=== PATIENT | female | born 1975 | race Caucasian/White ===

== ENCOUNTER 2019-08-20 11:14 | Inpatient (IN) | payer BC, SELFPAY ==
[2019-08-20] VITALS (7 sets, daily range): BP systolic 96–138; BP diastolic 49–83; PULSE 76–103; RESP 16–18; TEMP 36.2–37.4; O2SAT 94–99; BMI 34.2; BMI 34.3; BMI 35.2
[2019-08-20 12:23] LABS: Absolute Lymphocyte Count 1.57 X10^3/uL (0.83-4.51); Absolute Neutrophil Count 12.6 X10^3/uL (2.0-7.7); Basophil# 0.03 X10^3/uL; Basophil% 0.2 % (0-1); Eosinophil# 0.06 X10^3/uL; Eosinophils% 0.4 % (0-5); Hematocrit 42.5 % (37-47); Hemoglobin 14.6 g/dL (12.0-15.0); Lymphocyte # 1.57 X10^3/ul (4.0); Lymphocyte % 10.3 % (19-41); Mean Corp Hgb Conc 34.4 g/dL (32-36); Mean Corpuscular Hgb 29.9 pg (27.0-32.0); Mean Corpuscular Volume 87.1 fL (81-99); Mean Platelet Vol. 9.5 fl (6.2-12.0); Monocyte# 0.88 X10^3/uL; Monocyte% 5.8 % (0-10); NRBC Flagged by Analyzer 0 % (0-5); Neutrophil # 12.57 X10^3/uL (2.7-7.7); Neutrophil % 82.8 % (47-70); Platelet Count 325 K/mm3 (150-450); RBC Distribution Width CV 12.4 % (11.6-14.6); Red Blood Count 4.88 M/mm3 (4.2-5.4); White Blood Count 15.2 K/mm3 (4.4-11.0)
[2019-08-20 12:31] LABS: Internal QC Validated? YES +Cl - CLEAR BKGD; Pregnancy, Serum, hCG Quali. NEGATIVE Negative
[2019-08-20 12:38] LABS: AST(SGOT) 5 U/L (15-37); Alanine Aminotransfer ALT/SGPT 15 U/L (13-56); Albumin, Serum 3.4 g/dL (3.2-5.0); Alkaline Phosphatase 79 U/L (45-117); Anion Gap 6 (5-15); BUN 9 mg/dL (7-18); BUN/Creat Ratio 13.7 RATIO (10-20); Bilirubin, Direct 0.23 mg/dL (0.00-0.30); Calcium,Total 8.8 mg/dL (8.5-10.1); Chloride 103 mmol/L (98-107); Creatinine, Serum 0.66 mg/dL (0.55-1.02); EST Glomerular Filtration Rate 104 mL/min (>60); Est Glom Filt Rate - Afr Amer 126 mL/min (>60); Estimated Creatinine Clearance 105.78 ml/min; Globulin 3.8 g/dL (2.2-4.2); Glucose 94 mg/dL (74-106); Lipase 140 U/L (73-393); Protein, Total 7.2 g/dL (6.4-8.2); Sodium Level 137 mmol/L (136-145)
--- NOTE | 2019-08-20 13:22 | CT_ITS ---
STUDY: CT ABDOMEN AND PELVIS WITH CONTRAST REASON FOR EXAM: Female, 44 years old. 2 week history of left lower quadrant pain and diarrhea. Elevated white cell count. RADIATION DOSAGE (If Supplied By Facility): CTDIvol = ( 16.57 ) mGy, DLP = ( 1226.87 ) mGycm TECHNIQUE: Transaxial images were obtained from the dome of the diaphragm to the symphysis pubis without oral contrast. IV Isovue 370 100mL was administered. Sagittal and coronal images were reconstructed. Individualized dose optimization techniques were used for this CT. COMPARISON: Comparison is made with prior examination dated November 11, 2015. FINDINGS: The visualized lung bases are unremarkable. The visualized portions of the heart are within normal limits. Normal liver. Normal gallbladder and extrahepatic biliary system. Normal spleen. Normal pancreas. Normal bilateral adrenal glands. Normal right kidney. Normal left kidney. Normal visualized stomach. Normal small intestine. There is diverticulosis, with thickening of the colon wall, and pericolonic inflammation changes consistent with acute diverticulitis. Increased markings are seen in the surrounding peritoneal fat. The appendix is visualized and appears normal. There is scattered atherosclerotic calcification of the abdominal aorta, without a demonstrated aneurysm. Normal inferior vena cava. Normal retroperitoneum. Normal urinary bladder. Follicles are seen in both ovaries. Normal abdominal wall. Normal osseous structures. CT/Abdomen/Pelvis W IV Cont ONLY IMPRESSION: Findings in keeping with noncomplicated sigmoid diverticulitis. Electronically Signed: Tank Bowman, at 14:39 EDT , Service support ,
--- NOTE | 2019-08-20 13:23 | ED.DCSUM_ITS ---
History of Present Illness Chief Complaint: Abd Pain Informant: Patient, Family - Abdominal Pain/Flank Pain Onset: Days - 3-4 Context: Gradual Onset Timing: Continuous Quality: Aching Location: LLQ Current Severity: Severe Maximum Severity: Severe Worsened by: Car ride Relieved by: Nothing - Nausea/Vomiting/Emesis GI Symptom: Nausea. Negative for: Vomiting - Diarrhea/Melena/Hematochezia GI Symptom: Diarrhea. Negative for: Melena, Hematochezia Stool Quality: Watery. Negative for: Black, Maroon, PRESTON per rectum Severity: Severe Associated Symptoms: - - decreased UOP and is dark. Negative for: Dysuria, Frequency, Hematuria, Urgency Narrative: Patient has been having watery nonbloody diarrhea, anywhere between 7 and 15 times per day, for about 2 weeks. No recent antibiotics, travel out of the area or country, new sources of ground water ingestion, suspicious food intake, or known sick contacts. No recent fpc contact. Started getting this abdominal discomfort last several days that is worsened. She has a history of diverticulitis but never required surgery for it. Denies any bleeding in her stool. She has been feeling malaised and lightheaded especially when standing. She has had poor oral intake, nausea, decreased appetite, sent in by her doctor for further evaluation. - Past Medical History (1) Diverticulosis Status: Chronic Past Medical History - Allergies and Home Meds Allergies/Adverse Reactions: Allergies amoxicillin Allergy (Verified 08/20/19 11:15) Anaphylaxis aspirin Allergy (Verified 08/20/19 11:15) Rash ciprofloxacin [From Cipro] Allergy (Verified 08/20/19 11:15) MUSCLE PAIN CHLORAPREP Allergy (Uncoded 08/20/19 11:15) Rash Primary Care Physician: Kelsy Ly MD [Primary Care Provider] - Surgical History: - - , left salpingo-oophorectomy Lives: Spouse/ Significant Other Smoking Status: Former smoker Drugs: None Review of Systems General: Reports: Malaise. Denies: Chills, Fever, Sweats Eyes: Denies: Visual changes - bilaterally, Diplopia ENT: Denies: Rhinorrhea, Sore throat Cardiovascular: Denies: Chest pain, Palpitations Respiratory: Denies: Dyspnea, Cough, Dyspnea on exertion Gastrointestinal: Reports: Abdominal pain, Nausea, Diarrhea. Denies: Vomiting, Melena, Hematochezia Genitourinary: Denies: Dysuria, Hematuria, Frequency Musculoskeletal: Reports: Back pain - At times, low back. Denies: Extremity Pain Skin: Denies: Rash, Wounds Neurological: Denies: Headache, Weakness, Numbness Physical Exam Vital Signs/Narrative: Vital Signs Temp Pulse Resp BP Pulse Ox 08/20/19 12:43 95 16 121/72 H 99 08/20/19 11:15 97.9 F 103 H 18 129/83 H 98 Inital Vital Signs reviewed: Yes General: Well nourished, Well developed, No Acute Distress Head: Normocephalic, Atraumatic Eyes: Perrl, EOMI ENT: Moist mucous membranes, No rhinorrhea Neck: Supple, Nontender Cardiovascular: Regular rate, Regular rhythm, No murmurs Respiratory: No distress, CTA bilaterally, Chest nontender Abdomen: Soft, Nondistended, Normal bowel sounds, Tender - Suprapubic, left lower quadrant, left upper quadrant, otherwise benign, Guarding - Left lower quadrant. Negative for: Rebound tenderness, Pulsatile mass Back: Normal Inspection, CVA tenderness - Mild left side only Extremities: Nontender, No edema Skin: Normal color, No rash Neurological: Alert, Oriented x3, Cranial nerves II-XII grossly intact, Normal Strength, Normal Sensation Psychological: Normal affect, Normal Mood Diagnostic/Tx/Re-eval Impressions Abdomen/Pelvis CT 08/20/19 13:22 IMPRESSION: Findings in keeping with noncomplicated sigmoid diverticulitis. Electronically Signed: Tank Bowman, at 14:39 EDT , Service support , 08/20/19 13:22 Abdomen/Pelvis W IV Cont ONLY [CT] Stat Laboratory Results 08/20/19 08/20/19 08/20/19 12:12 12:12 12:12 WBC 15.2 H RBC 4.88 Hgb 14.6 Hct 42.5 MCV 87.1 MCH 29.9 MCHC 34.4 RDW Std Deviation 39.0 RDW Coeff of Marlene 12.4 Plt Count 325 MPV 9.5 Immature Gran % (Auto) 0.500 Neut % (Auto) 82.8 H Lymph % (Auto) 10.3 L [place] % (Auto) 5.8 Eos % (Auto) 0.4 Baso % (Auto) 0.2 Absolute Neuts (auto) 12.6 H Absolute Lymphs (auto) 1.57 Nucleated RBC % 0 Sodium 137 Potassium 4.0 Chloride 103 Carbon Dioxide 28.0 Anion Gap 6 BUN 9 Creatinine 0.66 Estim Creat Clear Calc 105.78 Est GFR (MDRD) Af Amer 126 Est GFR (MDRD) Non-Af 104 BUN/Creatinine Ratio 13.7 Glucose 94 Calcium 8.8 Total Bilirubin 1.00 Direct Bilirubin 0.23 AST 5 L ALT 15 Alkaline Phosphatase 79 Total Protein 7.2 Albumin 3.4 Globulin 3.8 Lipase 140 Serum , Qual NEGATIVE Urine Color Urine Clarity Urine pH Ur Specific [place] Urine Protein Urine Glucose (UA) Urine Ketones Urine Occult Blood Urine Nitrite Urine Bilirubin Urine Urobilinogen Ur Leukocyte Esterase Urine RBC Urine WBC Ur Squamous Epith Cells Urine Bacteria Urine Mucus 08/20/19 13:50 WBC RBC Hgb Hct MCV MCH MCHC RDW Std Deviation RDW Coeff of Marlene Plt Count MPV Immature Gran % (Auto) Neut % (Auto) Lymph % (Auto) [place] % (Auto) Eos % (Auto) Baso % (Auto) Absolute Neuts (auto) Absolute Lymphs (auto) Nucleated RBC % Sodium Potassium Chloride Carbon Dioxide Anion Gap BUN Creatinine Estim Creat Clear Calc Est GFR (MDRD) Af Amer Est GFR (MDRD) Non-Af BUN/Creatinine Ratio Glucose Calcium Total Bilirubin Direct Bilirubin AST ALT Alkaline Phosphatase Total Protein Albumin Globulin Lipase Serum , Qual Urine Color Yellow Urine Clarity Sl. Cloudy Urine pH 6.0 Ur Specific [place] 1.020 Urine Protein 30 H Urine Glucose (UA) Normal Urine Ketones 15 H Urine Occult Blood Negative Urine Nitrite Negative Urine Bilirubin Negative Urine Urobilinogen 1 H Ur Leukocyte Esterase 25 H Urine RBC 0 SEEN Urine WBC 0-5 SEEN Ur Squamous Epith Cells 0-5 SEEN Urine Bacteria 1+ Urine Mucus 0 SEEN - Medical Decision Making Labs show significant leukocytosis, and she is very tender. Therefore CT indicated to evaluate for abscess, diverticulitis, other pathology. It shows uncomplicated sigmoid diverticulitis, consistent with the patient's pain, tenderness, and history except for the amount of diarrhea she is having. We ordered an enteric bacterial panel however she is not been able to produce any diarrhea so far to this point. With IV fluids, morphine, Zofran she is feeling much better. She has anaphylaxis to amoxicillin and is also allergic to ciprofloxacin. Empirically treated with Flagyl and Rocephin IV. On reexamination, she is in more pain and requiring another dose of morphine. She prefers to stay due to the degree of pain she has been and which I think is relatively reasonable. Discussed with hospitalist for medical bed observation. ED Disposition - Plan for ED Patient: Disposition: Acute Care Hospital [facility] Diagnosis: Acute diarrhea, Acute diverticulitis Referrals: Kelsy Ly MD [Primary Care Provider] -
[2019-08-20] MEDS: Ondansetron 4 MG/2 ML Vial IV (13:45)
[2019-08-20] MEDS: 0.9% Normal Saline 1,000 ML 999 ML IV ×2 (13:45→15:51)
[2019-08-20] MEDS: Morphine 4 MG/ML Syringe IV ×2 (13:45→16:34)
[2019-08-20 14:06] LABS: Mucous, Urine 0 SEEN /hpf (<or=2+); Red Blood Cells-Urine 0 SEEN /hpf (0-5)
[2019-08-20 14:14] LABS: Color, Urine Yellow (Yellow); Glucose, Dipstick Normal (Normal); Ketone-Dipstick 15 mg/dl (Negative); Leukocyte Esterase-Dipstick 25 /ul (Negative); Nitrite-Dipstick Negative (Negative); Occult Blood-Urine Negative /ul (Negative); Protein-Dipstick 30 mg/dl (Negative); Urine Bilirubin Dipstick Negative (Negative); Urine Clarity Sl. Cloudy (Clear); Urine Urobilinogen 1 mg/dl (Normal)
[2019-08-20 14:21] LABS: Bacteria 1+ /hpf (None Seen); Squamous Epithelial Cells - UA 0-5 SEEN /hpf (5-10); White Blood Cells 0-5 SEEN /hpf (0-5)
[2019-08-20] MEDS: Ceftriaxone 1 GM/50 ML BAG IV (15:52)
--- NOTE | 2019-08-20 16:18 | HP.PCM_ITS ---
History of Present Illness Date of Admission: 08/20/19 Chief Complaint: Abdominal pain The patient is a 44 year old F with a past medical history of recurrent diverticulitis. She was admitted through the ED on 08/20/2019 with complaint of left lower quadrant abdominal pain which is been going on for about a few days. Patient started having diarrhea over a week ago and suddenly started developing abdominal pain which gradually worsened over the last few days. Abdominal pain was in the left lower quadrant though it started out periumbilically. She described pain as stabbing and cramping and constant and aggravated by movement. She had assisted nausea but did not have any vomiting. There was diverti culitis that she has had about 6 episodes in the past. She does have a history of constipation and states diverticulitis runs in her family. She had no assisted fever or chills and denied any vomiting. Review of systems otherwise negative. Labs and vitals reviewed. Pulse rate was initially 103 when she came in but subsequently normalized. Labs showed white cell count of 15.2 and, she was otherwise unremarkable. CT of the abdomen and pelvis showed uncomplicated sigmoid diverticulitis. She was started on IV ciprofloxacin and Flagyl and she has been admitted to be managed for acute diverticulitis. [] Past Medical History Past Medical History (Chronic Problems): Chronic Problems (Last Updated 08/20/19 @ 17:30 by Krista Sen MD) Diverticulosis (Chronic) Medical History: Medical History (Last Updated 08/20/19 @ 17:30 by Krista Sen MD) Diverticulitis K57.92 Allergies amoxicillin Allergy (Verified 08/20/19 11:15) Anaphylaxis aspirin Allergy (Verified 08/20/19 11:15) Rash ciprofloxacin [From Cipro] Allergy (Verified 08/20/19 11:15) MUSCLE PAIN CHLORAPREP Allergy (Uncoded 08/20/19 11:15) Rash Home Medications: Ambulatory Orders Medication Instructions Recorded NK 08/20/19 Surgical History: - - , left salpingo-oophorectomy Psychiatric History: No pertinent psych hx Lives: Spouse/ Significant Other Smoking Status: Former smoker Tobacco Use: Non-smoker Alcohol: Occasional Drugs: None - *Family History Maternal History Items: Heart Disease, Hypertension Paternal History Items: Cancer Review of Systems Constitutional: Reports: Malaise. Denies: Anorexia, Chills, Fever, Weakness, Fatigue Eyes: Denies: Blurred vision HEENT: Denies: Head Aches, Sinus Congestion, Sinus Drainage Cardiovascular: Denies: Chest Pain, Palpitations Respiratory: Denies: Cough, Shortness of breath at rest, Sputum production Gastrointestinal: Reports: Abdominal Pain, Diarrhea. Denies: Dyspepsia, Nausea, Vomiting Genitourinary: Denies: Dysuria Musculoskeletal: Denies: Joint Pain, Joint Tenderness Skin: Denies: Rash, Wounds Neurological: Denies: Numbness, Tingling, Focal weakness Psychiatric: Denies: Anxiety, Depression, Homicidal Ideations, Suicidal Ideations Hematologic/ Lymphatic: Denies: Easy Bruising, Easy Bleeding VTE Information - Inpt Only VTE Present on Admission: No VTE Pharm Prophylaxis ordered?: Yes Patient Problems: Active and Suspected Problems (Last Updated 08/20/19 @ 17:30 by Krista Sen MD) Acute diarrhea (Acute) Acute diverticulitis (Acute) - Physical Exam Vitals/I&O's: Vital Signs Temp Pulse Resp BP Pulse Ox 97.9 F 83 16 125/68 H 96 08/20/19 11:15 08/20/19 15:51 08/20/19 15:51 08/20/19 15:51 08/20/19 15:51 Oxygen Delivery Method Room Air Weight: 219 lb Body Mass Index (BMI) 34.2 Intake and Output for Last 24 Hours 08/18/19 08/19/19 08/20/19 23:59 23:59 23:59 Intake Total 1000 / 1000 Balance 1000 / 1000 General: Alert, Oriented x3, Cooperative, No apparent distress HEENT: Atraumatic, PERRLA, EOMI, Normocephalic Oral: Dry Mucosa Neck: Supple, No JVD, Negative Carotid Bruits Lungs: Clear to auscultation, Normal air movement Cardiovascular: Regular rate, Regular Rhythm, Normal S1, Normal S2, No murmurs Abdomen: Bowel Sounds Present, Soft, - - mild left lower quadrant and superficial pain, no guarding or rebound tenderness Extremities: No edema, Capillary Refill Less than 3 Seconds Skin: No rashes, No breakdown Musculoskeletal: No Tenderness to Palpation of Joints or Extremities Lymphatic: No Cervical, Supraclavicular, or Inguinal Adenopathy Neurological: Cranial nerves II-XII grossly intact, Neuro grossly intact, Motor Exam 5/5 strength throughout Psych/Mental Status: Normal Affect, Appropriate, Alert and oriented to time, place, person, mood and affect Laboratory Results 08/20/19 12:12: WBC 15.2 H, RBC 4.88, Hgb 14.6, Hct 42.5, MCV 87.1, MCH 29.9, MCHC 34.4, RDW Std Deviation 39.0, RDW Coeff of Marlene 12.4, Plt Count 325, MPV 9.5, Immature Gran % (Auto) 0.500, Neut % (Auto) 82.8 H, Lymph % (Auto) 10.3 L, [place] % (Auto) 5.8, Eos % (Auto) 0.4, Baso % (Auto) 0.2, Absolute Neuts (auto) 12.6 H, Absolute Lymphs (auto) 1.57, Nucleated RBC % 0 08/20/19 12:12: Sodium 137, Potassium 4.0, Chloride 103, Carbon Dioxide 28.0, Anion Gap 6, BUN 9, Creatinine 0.66, Estim Creat Clear Calc 105.78, Est GFR (MDRD) Af Amer 126, Est GFR (MDRD) Non-Af 104, BUN/Creatinine Ratio 13.7, Glucose 94, Calcium 8.8, Total Bilirubin 1.00, Direct Bilirubin 0.23, AST 5 L, ALT 15, Alkaline Phosphatase 79, Total Protein 7.2, Albumin 3.4, Globulin 3.8, Lipase 140 08/20/19 12:12: Serum , Qual NEGATIVE 08/20/19 13:50: Urine Color Yellow, Urine Clarity Sl. Cloudy, Urine pH 6.0, Ur Specific [place] 1.020, Urine Protein 30 H, Urine Glucose (UA) Normal, Urine Ketones 15 H, Urine Occult Blood Negative, Urine Nitrite Negative, Urine Bilirubin Negative, Urine Urobilinogen 1 H, Ur Leukocyte Esterase 25 H, Urine RBC 0 SEEN, Urine WBC 0-5 SEEN, Ur Squamous Epith Cells 0-5 SEEN, Urine Bacteria 1+, Urine Mucus 0 SEEN Diagnostic Data Abdomen/Pelvis CT 08/20/19 13:22 IMPRESSION: Findings in keeping with noncomplicated sigmoid diverticulitis. Electronically Signed: Tank Bowman, at 14:39 EDT , Service support , Current Medications Metronidazole (Flagyl) 500 mg in 100 mls @ 100 mls/hr IV X1 ONE Stop: 08/20/19 16:25 Assessment/Plan All Active Problems (Last Updated 08/20/19 @ 17:30 by Krista Sen MD) Acute diarrhea (Acute) Acute diverticulitis (Acute) 44-year-old female admitted with a complaint of abdominal pain. 1. Acute recurrent sigmoid diverticulitis * Admit to [facility] * Keep n.p.o. for now * Started on IV Flagyl in the ED. Will continue. Patient allergic to ciprofloxacin and also allergic to amoxicillin so cannot be given cephalosporins. * Hydrated with IV fluid normal saline. IV morphine as needed for pain * Consult general surgery if pain does not improve by tomorrow * DVT prophylaxis: Lovenox Code Visit OBSV E&M: 22014 Initial observation care L2
[2019-08-20] MEDS: metroNIDAZOLE 500 MG/100 ML BAG 100 MG IV ×2 (16:41→22:15)
[2019-08-20] MEDS: 0.9% Normal Saline 1,000 ML 125 ML IV (19:33)
[2019-08-20 23:16] LABS: Bedside Glucose 76 mg/dL (70-110)
[2019-08-21 02:54] VITALS: BP 114/71; PULSE 75; RESP 18; TEMP 37; O2SAT 97
[2019-08-21] MEDS: Ondansetron 4 MG/2 ML Vial IV ×2 (02:58→10:20)
[2019-08-21] MEDS: Morphine 4 MG/ML Syringe IV ×2 (02:58→10:20)
[2019-08-21] MEDS: 0.9% Normal Saline 1,000 ML 125 ML IV (04:16)
[2019-08-21] MEDS: metroNIDAZOLE 500 MG/100 ML BAG 100 MG IV ×3 (06:05→21:12)
[2019-08-21 06:36] LABS: Absolute Lymphocyte Count 1.48 X10^3/uL (0.83-4.51); Absolute Neutrophil Count 5.2 X10^3/uL (2.0-7.7); Basophil# 0.03 X10^3/uL; Basophil% 0.4 % (0-1); Eosinophil# 0.15 X10^3/uL; Hemoglobin 12.1 g/dL (12.0-15.0); Lymphocyte # 1.48 X10^3/ul (4.0); Mean Corp Hgb Conc 32.7 g/dL (32-36); Mean Corpuscular Volume 88.7 fL (81-99); Monocyte# 0.49 X10^3/uL; Monocyte% 6.6 % (0-10); NRBC Flagged by Analyzer 0 % (0-5); Neutrophil # 5.22 X10^3/uL (2.7-7.7); Neutrophil % 70.6 % (47-70); Platelet Count 238 K/mm3 (150-450); RBC Distribution Width CV 12.6 % (11.6-14.6); RBC Distribution Width SD 40.7 fl (35.1-43.9); Red Blood Count 4.17 M/mm3 (4.2-5.4); White Blood Count 7.4 K/mm3 (4.4-11.0)
[2019-08-21 06:41] LABS: Anion Gap 5 (5-15); BUN 6 mg/dL (7-18); BUN/Creat Ratio 11.8 RATIO (10-20); Calcium,Total 7.8 mg/dL (8.5-10.1); Chloride 111 mmol/L (98-107); Creatinine, Serum 0.51 mg/dL (0.55-1.02); EST Glomerular Filtration Rate 139 mL/min (>60); Est Glom Filt Rate - Afr Amer 168 mL/min (>60); Estimated Creatinine Clearance 131.78 ml/min; Glucose 78 mg/dL (74-106); Potassium 3.8 mmol/L (3.5-5.1); Sodium Level 141 mmol/L (136-145)
[2019-08-21 07:01] LABS: Bedside Glucose 72 mg/dL (70-110)
--- NOTE | 2019-08-21 07:55 | PN_ITS ---
Patient Problems: Active and Suspected Problems (Last Updated 08/20/19 @ 17:30 by Krista Sen MD) Acute diarrhea (Acute) Acute diverticulitis (Acute) Subjective: Day #2 Flagyl The patient is a 44-year-old female with a past medical history of diverticulosis, obesity, chronic constipation and tobacco dependence in remission who presented to the emergency department at [facility] on 08/20/2019 complaining of left lower quadrant abdominal pain that had been present for a few days. Vital signs at presentation to the emergency room were temperature 97.9, pulse rate 103, blood pressure 129/83, respiratory rate 18 and she was 98% saturated on room air. White blood cell count was elevated at 15.2 with a left shift. CMP was unremarkable. CT of the abdomen and pelvis was consistent with sigmoid diverticulitis. There were no abscesses noted. She was admitted to the hospital with a diagnosis of acute recurrent sigmoid diverticulitis and continued on Flagyl started in the ED. She also had Rocephin in the ED. She is allergic to Amoxicillin and gets Muscle pain with Cipro. Consultation was ordered with general surgery. The max is 99.3. Vital signs are stable. Tachycardia has resolved. She is maintaining an appropriate oxygen saturation on room air. White blood cell count today is normal at 7.4 with 70.6% neutrophils. BMP is unremarkable. Continues to complain of left lower quadrant abdominal pain but the pain is tolerable with medication that has been ordered. She is tolerating sips of water with no problem. She denies nausea. She has not had emesis. - Physical Exam Vitals/I&O's: Vital Signs Temp Pulse Resp BP Pulse Ox 98.6 F 75 18 114/71 97 08/21/19 02:54 08/21/19 02:54 08/21/19 02:54 08/21/19 02:54 08/21/19 02:54 Oxygen Delivery Method Room Air Weight: 224 lb Body Mass Index (BMI) 35.2 Intake and Output for Last 24 Hours 08/19/19 08/20/19 08/21/19 23:59 23:59 23:59 Intake Total 2587.5 / 2587.5 627.08 / 627.08 Balance 2587.5 / 2587.5 627.08 / 627.08 General: Alert, Oriented x3, Cooperative, No apparent distress, Well developed, Well nourished Oral: Moist Mucosa Neck: No Nodes, Trachea Midline Lungs: Clear to auscultation Cardiovascular: Regular rate, Regular Rhythm, Normal S1, Normal S2, No Gallop Abdomen: Soft, Non-Distended, Tender - Tender to palpation of the left lower quadrant with no guarding, - - She has diminished bowel sounds on the left side of the abdomen but bowel sounds on the right are normal. Extremities: No clubbing, No cyanosis, No edema Skin: - - Pruritic maculopapular rash on the upper anterior thighs and on the upper left extremity in the triceps area Neurological: Cranial nerves II-XII grossly intact, Neuro grossly intact Laboratory Results 08/20/19 12:12: WBC 15.2 H, RBC 4.88, Hgb 14.6, Hct 42.5, MCV 87.1, MCH 29.9, MCHC 34.4, RDW Std Deviation 39.0, RDW Coeff of Marlene 12.4, Plt Count 325, MPV 9.5, Immature Gran % (Auto) 0.500, Neut % (Auto) 82.8 H, Lymph % (Auto) 10.3 L, [place] % (Auto) 5.8, Eos % (Auto) 0.4, Baso % (Auto) 0.2, Absolute Neuts (auto) 12.6 H, Absolute Lymphs (auto) 1.57, Nucleated RBC % 0 08/20/19 12:12: Sodium 137, Potassium 4.0, Chloride 103, Carbon Dioxide 28.0, Anion Gap 6, BUN 9, Creatinine 0.66, Estim Creat Clear Calc 105.78, Est GFR (MDRD) Af Amer 126, Est GFR (MDRD) Non-Af 104, BUN/Creatinine Ratio 13.7, Glucose 94, Calcium 8.8, Total Bilirubin 1.00, Direct Bilirubin 0.23, AST 5 L, ALT 15, Alkaline Phosphatase 79, Total Protein 7.2, Albumin 3.4, Globulin 3.8, Lipase 140 08/20/19 12:12: Serum , Qual NEGATIVE 08/20/19 13:50: Urine Color Yellow, Urine Clarity Sl. Cloudy, Urine pH 6.0, Ur Specific [place] 1.020, Urine Protein 30 H, Urine Glucose (UA) Normal, Urine Ketones 15 H, Urine Occult Blood Negative, Urine Nitrite Negative, Urine Bilirubin Negative, Urine Urobilinogen 1 H, Ur Leukocyte Esterase 25 H, Urine RBC 0 SEEN, Urine WBC 0-5 SEEN, Ur Squamous Epith Cells 0-5 SEEN, Urine Bacteria 1+, Urine Mucus 0 SEEN 08/20/19 23:09: POC Glucose 76 08/21/19 05:38: WBC 7.4, RBC 4.17 L, Hgb 12.1, Hct 37.0, MCV 88.7, MCH 29.0, MC HC 32.7, RDW Std Deviation 40.7, RDW Coeff of Marlene 12.6, Plt Count 238, MPV 10.0, Immature Gran % (Auto) 0.400, Neut % (Auto) 70.6 H, Lymph % (Auto) 20.0, [place] % (Auto) 6.6, Eos % (Auto) 2.0, Baso % (Auto) 0.4, Absolute Neuts (auto) 5.2, Absolute Lymphs (auto) 1.48, Nucleated RBC % 0 08/21/19 05:38: Sodium 141, Potassium 3.8, Chloride 111 H, Carbon Dioxide 25.0, Anion Gap 5, BUN 6 L, Creatinine 0.51 L, Estim Creat Clear Calc 131.78, Est GFR (MDRD) Af Amer 168, Est GFR (MDRD) Non-Af 139, BUN/Creatinine Ratio 11.8, Glucose 78, Calcium 7.8 L 08/21/19 06:54: POC Glucose 72 Current Medications Dextrose (D50w Syringe) 0 gm IV X1 PRN; Protocol PRN Reason: Hypoglycemia Enoxaparin Sodium (Lovenox) 40 mg SC DAILY@1000 DELFINA Glucagon () 1 mg IM .X1 PRN PRN Reason: Hypoglycemia Sodium Chloride () 1,000 mls @ 125 mls/hr IV .Q8H [facility] Stop: 08/21/19 10:39 Last Admin: 08/21/19 04:16 Dose: 125 mls/hr Documented by: Metronidazole (Flagyl) 500 mg in 100 mls @ 100 mls/hr IV Q8 DELFINA Last Admin: 08/21/19 06:05 Dose: 100 mls/hr Documented by: Morphine Sulfate () 4 mg IV Q3H PRN PRN PRN Reason: Pain Score 6-10/10 Last Admin: 08/21/19 02:58 Dose: 4 mg Documented by: Ondansetron HCl (Zofran) 4 mg IV Q6H PRN PRN PRN Reason: NAUSEA Last Admin: 08/21/19 02:58 Dose: 4 mg Documented by: Sodium Chloride () 10 - 40 ml IV UD PRN PRN Reason: SALINE FLUSH Medical Necessity - Tobacco Use Smoking Status: Former smoker Tobacco Use: Non-smoker Assessment/Plan All Active Problems (Last Updated 08/20/19 @ 17:30 by Krista Sen MD) Acute diarrhea (Acute) Acute diverticulitis (Acute) Impressions 1. Recurrent diverticulitis - recently constipated and straining with bowel m ovement. No using stool softeners....now with loose stool. Last stool was 24 H ago. 2. allergic dermatitis - suspect due to Rocephin and not to flagyl. 3. Chronic constipation 4. Tobacco dependence in remission/obesity Start Levaquin Benadryl PRN for pruritus DC the enteric isolation and DC the C.DIFF......she has not had a BM in 24H. Start a probiotic Code Visit Inpatient E&M: 30814 Subs Hosp L2
[2019-08-21 08:53] VITALS: BP 107/54; PULSE 80; TEMP 36.6; O2SAT 98
[2019-08-21] MEDS: Enoxaparin 40 MG/0.4 ML Syringe SC (10:20)
[2019-08-21] MEDS: 0.9% Saline Lock 10 ML Syringe IV ×2 (10:20→18:02)
[2019-08-21] MEDS: DiphenhydrAMINE 25 MG Capsule PO ×2 (13:28→15:05)
--- NOTE | 2019-08-21 14:45 | CASEMGMT ---
RN KALLIE Face to Face with patient for initial transition planning/care coordination assessment. RN CM introduced self and role at [facility]. Patient lying in bed, alert and oriented. Patient willing to participate in assessment and is able to answer all questions appropriately. Care providers, pharmacy, and demographics verified. Patient wishes to discharge home, denies need for home health at this time. Patient states she has no further needs or concerns at this time. CM to follow for discharge planning needs that may arise. PCP: Aliyah Specialists: None [facility]acy[facility] Insurance: Daniel Prescription Benefit: yes Living Will/HPOA: none LNOK: Living Arrangements: Patient lives in 1 story home with 3 steps to enter the home. Patient is independent at home. Transportation: self/ DME/HHC: Patient denies DME or previous HHC. Disposition Plan: Paitent to discharge home with family support and follow-up plans in place. Christine MENDOZA, RN, CM
[2019-08-21] MEDS: levoFLOXacin IV 500 MG/100 ML BAG 100 MG IV (15:06)
[2019-08-21 15:12] VITALS: BP 119/56; PULSE 76; RESP 18; TEMP 37.1; O2SAT 96
[2019-08-21 21:24] VITALS: BP 129/65; PULSE 66; RESP 18; TEMP 36.6; O2SAT 98
[2019-08-22 03:15] VITALS: BP 108/59; PULSE 87; RESP 16; TEMP 36.8; O2SAT 97
[2019-08-22] MEDS: metroNIDAZOLE 500 MG/100 ML BAG 100 MG IV ×2 (05:23→15:20)
[2019-08-22 09:30] VITALS: BP 104/42; PULSE 65; RESP 16; TEMP 36.9; O2SAT 99
[2019-08-22] MEDS: levoFLOXacin IV 500 MG/100 ML BAG 100 MG IV (09:42)
[2019-08-22] MEDS: Enoxaparin 40 MG/0.4 ML Syringe SC (09:43)
--- NOTE | 2019-08-22 10:42 | DCINST_ITS ---
- Discharge Diagnoses Current Active Problems: Current Active and Chronic Problems (Last Updated 08/20/19 @ 17:30 by Krista Sen MD) Diverticulosis (Chronic) Acute diarrhea (Acute) Acute diverticulitis (Acute) You will use the following diet at home:: Other - SOFT Diet for 3 days and then advance to regular diet Your food should be the consistency of: Regular Call your doctor if you observe: Fever of 101 or Higher, Inability to urinate, Inability to have a bowel movement, Shortness of breath, Fainting spells, Swelling in the ankles, Chest pain, Uncontrolled pain Allergies/Adverse Reactions: Allergies amoxicillin Allergy (Verified 08/20/19 11:15) Anaphylaxis aspirin Allergy (Verified 08/20/19 11:15) Rash ciprofloxacin [From Cipro] Allergy (Verified 08/20/19 11:15) MUSCLE PAIN CHLORAPREP Allergy (Uncoded 08/20/19 11:15) Rash Medications to take at Discharge Lactobacillus Acidophilus [Acidophilus] 1 tab PO BID #14 tab 08/22/19 Levofloxacin [Levaquin] 500 mg PO DAILY #7 tab 08/22/19 Metronidazole [Flagyl] 500 mg PO TID #20 tab 08/22/19 The following prescriptions were given: Lactobacillus Acidophilus [Acidophilus] 1 tab PO BID #14 tab Transmission Status: Pending to [facility] Metronidazole [Flagyl] 500 mg PO TID #20 tab Transmission Status: Pending to [facility] Levofloxacin [Levaquin] 500 mg PO DAILY #7 tab Transmission Status: Pending to [facility] Primary Care Physician: Kelsy Ly MD [Primary Care Provider] - Please follow up with your Primary Care Physician in: in 1-2 weks Test Results: Test results from this visit will be discussed in further detail at your follow- up appointment, if applicable. Please Follow Up With: Juan Jennings MD When: in 4 weeks
--- NOTE | 2019-08-22 10:43 | PCM.DC.SUM ---
Discharge Date and Diagnosis - Problem List Patient Problems: Active and Suspected Problems (Last Updated 08/20/19 @ 17:30 by Krista Sen MD) Acute diarrhea (Acute) Acute diverticulitis (Acute) Date of Admission: 08/20/19 Date of Discharge: 08/22/19 - Primary Discharge Diagnosis Active and Suspected Problems (Last Updated 08/20/19 @ 17:30 by Krista Sen MD) Acute diarrhea (Acute) Acute diverticulitis (Acute) - Secondary Discharge Diagnosis Chronic Problems (Last Updated 08/20/19 @ 17:30 by Krista Sen MD) Diverticulosis (Chronic) Hospital Course and Treatment Summary of Care Provided: The patient is a 44 year old F with history of chronic constipation and obesity was admitted for left lower quadrant abdominal pain for few days prior to admission. Patient was mildly tachycardic heart rate 103. Leukocytosis W his count 15.2 thousand with left shift. CT abdomen shows sigmoid diverticulitis but no abscess. Patient was admitted on [facility] floor. We will patient has a history of diverticulitis about 3 years ago. Patient was treated with IV Levaquin and Flagyl. Patient is discharged on Flagyl, Levaquin for 7 more days. Advised to take lactobacillus, probiotic while on antibiotic. Discharge medication reconciliation done. Discharge follow-up instructions completed. Discharge process discussed with the patient and all questions were answered to patient's satisfaction. Patient Problems: Active and Suspected Problems (Last Updated 08/20/19 @ 17:30 by Krista Sen MD) Acute diarrhea (Acute) Acute diverticulitis (Acute) Subjective: Seen and examined. Patient feels mild abdominal discomfort on left side. Tolerated clear liquid and full liquid. Patient wants to go home. Inpatient, on IV antibiotics; will change to p.o. antibiotics - Physical Exam Vitals/I&O's: Vital Signs Temp Pulse Resp BP Pulse Ox 98.4 F 65 16 104/42 L 99 08/22/19 09:30 08/22/19 09:30 08/22/19 09:30 08/22/19 09:30 08/22/19 09:30 Oxygen Delivery Method Room Air Weight: 224 lb Body Mass Index (BMI) 35.2 Intake and Output for Last 24 Hours 08/20/19 08/21/19 08/22/19 23:59 23:59 23:59 Intake Total 2587.5 / 2587.5 2807.08 / 2807.08 200 / 200 Balance 2587.5 / 2587.5 2807.08 / 2807.08 200 / 200 General: Alert, Oriented x3, Cooperative HEENT: Atraumatic, PERRLA, EOMI, Normocephalic Neck: Supple, No JVD, Negative Carotid Bruits Lungs: Clear to auscultation, Normal air movement, No rhonchi, No wheeze, No rales Cardiovascular: Regular rate, Regular Rhythm, Normal S1, Normal S2, No murmurs Abdomen: Bowel Sounds Present, Soft, Non-Distended, Tender - Mild deep tenderness of left lower quadrant and hypogastrium region Extremities: No edema, Capillary Refill Less than 3 Seconds Skin: No rashes, No breakdown Musculoskeletal: No Tenderness to Palpation of Joints or Extremities Neurological: Cranial nerves II-XII grossly intact, Deep Tendon Reflexes 2+/4 and Symmetrical, Neuro grossly intact, Motor Exam 5/5 strength throughout Psych/Mental Status: Normal Affect, Appropriate Current Medications Diphenhydramine HCl (Benadryl) 25 - 50 mg PO Q6H PRN PRN Reason: rash/itching Last Admin: 08/21/19 15:05 Dose: 25 mg Documented by: Enoxaparin Sodium (Lovenox) 40 mg SC DAILY@1000 DELFINA Last Admin: 08/22/19 09:43 Dose: 40 mg Documented by: Metronidazole (Flagyl) 500 mg in 100 mls @ 100 mls/hr IV Q8 [facility] Last Infusion: 08/22/19 06:49 Dose: Infused Documented by: Levofloxacin (Levaquin Iv) 500 mg in 100 mls @ 100 mls/hr IV Q24 [facility] Last Admin: 08/22/19 09:42 Dose: 100 mls/hr Documented by: Sodium Chloride () 250 mls @ 15 mls/hr IV .[id number] PRN PRN Reason: Saline Flush Lactobacillus Acidophilus (Acidophilus) 1 tablet PO BID [facility] Last Admin: 08/22/19 09:43 Dose: 1 tablet Documented by: Morphine Sulfate () 4 mg IV Q3H PRN PRN PRN Reason: Pain Score 6-10/10 Last Admin: 10/25/19 10:20 Dose: 4 mg Documented by: Ondansetron HCl (Zofran) 4 mg IV Q6H PRN PRN PRN Reason: NAUSEA Last Admin: 08/21/19 10:20 Dose: 4 mg Documented by: Sodium Chloride () 10 - 40 ml IV UD PRN PRN Reason: SALINE FLUSH Last Admin: 08/21/19 18:02 Dose: 10 ml Documented by: Call your doctor if you observe: Fever of 101 or Higher, Inability to urinate, Inability to have a bowel movement, Shortness of breath, Fainting spells, Swelling in the ankles, Chest pain, Uncontrolled pain Home Medications: Medications to take at Discharge Lactobacillus Acidophilus [Acidophilus] 1 tab PO BID #14 tab 08/22/19 Levofloxacin [Levaquin] 500 mg PO DAILY #7 tab 08/22/19 Metronidazole [Flagyl] 500 mg PO TID #20 tab 08/22/19 Following Prescrptions Were Given to Patient: Lactobacillus Acidophilus [Acidophilus] 1 tab PO BID #14 tab Transmission Status: Received by [address] Metronidazole [Flagyl] 500 mg PO TID #20 tab Transmission Status: Received by [address] Levofloxacin [Levaquin] 500 mg PO DAILY #7 tab Transmission Status: Received by [address] Primary Care Physician: Kelsy Ly MD [Primary Care Provider] - Please follow up with your Primary Care Physician in: in 1-2 weks Please Follow Up With: Juan Jennings MD When: in 4 weeks Medical Necessity - Tobacco Use Smoking Status: Former smoker Tobacco Use: Non-smoker Meaningful Use Info Meaningful Use Diagnoses (Choose all that apply): None applicable Code Visit Inpatient E&M: 43604 Disch Hosp
[2019-08-22] MEDS: 0.9% Saline Lock 10 ML Syringe IV (15:20)
[2019-08-22 15:26] VITALS: BP 110/51; PULSE 77; RESP 16; TEMP 36.9; O2SAT 99
== END 2019-08-22 19:03 | disposition home or self-care (01) | DRG 392 ==
LOC: ED 16:19 → MS3 08-21 05:48
PROVIDERS: Admitting Provider Student in an Organized Health Care Education/Training Program; Emergency Provider Emergency Medicine; Family Provider Internal Medicine; PCP Internal Medicine; Visit Provider Internal Medicine
DX: K57.32 Diverticulitis of large intestine without perforation or abscess without bleeding (principal); Z88.1 Allergy status to other antibiotic agents; Z88.0 Allergy status to penicillin; F17.201 Nicotine dependence, unspecified, in remission; E66.9 Obesity, unspecified; K59.09 Other constipation; Z68.35 Body mass index [BMI] 35.0-35.9, adult; R21 Rash and other nonspecific skin eruption
CPT/HCPCS: 36415; 74177; 80048; 80076; 81001; 82962; 83690; 84703; 85025; 99284; J7030; J7050; Q9967; A4216; J2405

== ENCOUNTER 2022-03-22 01:44 | Emergency (ER) | payer BC, SELFPAY ==
[2022-03-22 01:45] VITALS: BP 106/62; PULSE 77; RESP 16; TEMP 36.2; O2SAT 98; BMI 36.5
--- NOTE | 2022-03-22 01:50 | ED.VIS.GI ---
HPI HPI - GI History of Present Illness Chief Complaint: Abd Pain Detail of Chief Complaint: Abdominal pain that started around 9 PM Informant: patient Narrative Narrative: Patient presents to the emergency department complaint of severe abdominal pain us around 9 PM. Patient states that she thinks she is either passing a kidney stone or is having a flareup of her diverticulitis. Patient tells me she was supposed to have surgery for her diverticulitis yesterday but had a flare so they had to cancel the surgery. Patient denies dysuria or urgency or frequency. She denies fevers. She denies vomiting although she is had some nausea. She currently rates her pain an 8 out of 10. Patient denies any blood in her stool or black tarry stool. Prior similar symptoms: Yes PFSH [facility] Medical History (Updated 03/22/22 @ 03:[address] Karolina oNvoa, DO) Diverticulitis Kidney stone Home Medications acidophilus-pectin, citrus 1 tab PO BID #14 tab 08/22/19 [Rx Last Taken Unknown] bupropion HCl [Wellbutrin XL] 300 mg PO DAILY 03/22/22 [History Last Taken Unknown] Allergy/AdvReac Type Severity Reaction Status Date / Time amoxicillin Allergy Anaphylaxis Verified 03/22/22 01:50 aspirin Allergy Rash Verified 03/22/22 01:50 ciprofloxacin [From Cipro] Allergy MUSCLE PAIN Verified 03/22/22 01:50 CHLORAPREP Allergy Rash Uncoded 03/22/22 01:50 Social History Smoking Status: Former smoker ROS ROS ED Constitutional Constitutional ED: Reports systems reviewed and no addt'l complaints, except as documented; Denies body ache(s), change in weight or chills Eyes Eyes: Denies acute decrease in peripheral vision, change in vision, double vision or loss of vision ENT ENT ED: Reports none; Denies ear pain, lip swelling, loss taste/smell, neck pain, otalgia or sore throat Cardiovascular Cardiovascular: Reports none; Denies abdominal pain, chest pain with activity, leg edema, lightheadedness, palpitations, rapid heart rate or syncope Respiratory/Chest Respiratory/Chest: Reports none; Denies change in mental status, dry cough, dyspnea, hemoptysis, shortness of breath at rest or shortness of breath with exertion Gastrointestinal Gastrointestinal: Reports none, abdominal pain and nausea; Denies change in stool character, diarrhea, hematemesis, hematochezia, melena, rectal bleeding or vomiting Genitourinary Genitourinary ED: Reports none; Denies abdominal discomfort, anuria, dysuria, genital pain or polyuria Musculoskeletal Musculoskeletal: Reports none; Denies arthralgias, back pain, difficulty walking, extremity pain, muscle weakness or myalgias Integumentary Reports none; Denies abscess or rash Neurologic Neurologic: Reports none; Denies abnormal gait, confusion, focal weakness, frequent falls, headache(s), loss of vision, numbness, paresthesias, radicular pain, vertigo or weakness Psychiatric Psychiatric: Reports systems reviewed and no addt'l complaints, except as documented and none; Denies behavioral changes, confusion, difficulty concentrating, hallucinations, suicidal ideation, tactile hallucinations or visual hallucinations Endocrine Endocrinology: Denies none, cold intolerance, excessive sweating, fatigue or heat intolerance Hematologic/Lymphatic Hematologic/Lymphatic: Reports none; Denies anemia, easy bleeding or easy bruising Allergic/Immunologic Allergic/Immunologic ED: Denies as per HPI, none, lip swelling, mouth swelling, throat swelling, tongue swelling or hives EXAM Physical Exam Const Vital Signs: 03/22/22 01:45 Temperature 97.2 F L Temperature Source Temporal Pulse Rate 77 Respiratory Rate 16 Blood Pressure 106/62 Blood Pressure Mean 76 Pulse Ox 98 Oxygen Delivery Method Room Air Positive well nourished and well developed General Appearance ED: well developed and NAD HEENT Reports TM's clear and moist mucous membranes normocephalic and atraumatic; Negative for trauma or tenderness Tympanic Membrane ED: Yes TM's clear Eyes PERRL and EOMs intact bilaterally General Eye ED: Negative for pale conjunctiva or scleral icterus Neck no lymphadenopathy, supple and no JVD General: Negative for tenderness Chest Wall inspection of chest normal and palpation of chest normal Chest: Negative for tenderness Resp normal respiratory effort and clear to auscultation bilaterally Effort and Inspection: Negative for respiratory distress or pain with movement Auscultation: Negative for rhonchi, wheezes or diminished lung sounds Cardio regular rate, regular rhythm, S1 normal heart sound, S2 normal heart sound and no murmurs Peripheral Pulses: pulses 2+ throughout GI normal to inspection, nondistended, normoactive bowel sounds, soft to palpation, non-distended and no masses GI Narrative: Mild CVAPatient with tenderness palpation over left lower quadrant with some guarding. There is no rebound, rigidity, or frail signs. Back/Spine no thoracic nor lumbar tenderness General Back: CVA tenderness Extremity normal to inspection General Extremety ED: Negative for edema General Extremity: Negative for edema Neuro oriented x3, CN's II-XII intact bilaterally, no sensory deficits noted and gait normal Sensorium / Orientation: awake, alert, oriented to person, oriented to place and oriented to time Motor Exam: strength 5/5 throughout and strength abnormal Psych mental status grossly normal Skin no rashes or lesions noted and no wounds MDM MDM MDM Narrative Medical decision making narrative: IV line established on arrival. Patient was given Zofran and Dilaudid. She had some pain relief with that. Lab work-up showed an elevated white count of 13.9. CT scan of the abdomen pelvis showed acute diverticulitis of the descending colon with free air and suspected perforated diverticulum. Patient was advised the findings and she would like for me to discuss case with her general surgeon Dr. Juan Jennings. I discussed case with her surgeon who asked me to transfer her to my [facility] ER where he will admit the patient. Patient has multiple drug allergies but will start her on Levaquin and Flagyl IV. Lab Data Attestation: I reviewed the patient's lab results. Labs: Laboratory Results - last 24 hr 03/22/22 03/22/22 03/22/22 02:05 02:05 02:05 WBC 13.9 H RBC 4.85 Hgb 14.0 Hct 40.5 MCV 83.5 MCH 28.9 MCHC 34.6 RDW Std Deviation 39.6 RDW Coeff of Marlene 13.1 Plt Count 371 MPV 10.0 Immature Gran % (Auto) 0.400 Neut % (Auto) 78.6 H Lymph % (Auto) 14.8 L [place] % (Auto) 4.7 Eos % (Auto) 1.1 Baso % (Auto) 0.4 Absolute Neuts (auto) 11.0 H Absolute Lymphs (auto) 2.07 Nucleated RBC % 0 Sodium 139 Potassium 3.9 Chloride 109 H Carbon Dioxide 23.0 Anion Gap 7 BUN 15 Creatinine 0.75 Estim Creat Clear Calc 87.74 Est GFR (MDRD) Af Amer 107 Est GFR (MDRD) Non-Af 88 BUN/Creatinine Ratio 20.0 Glucose 128 H Lactic Acid 1.8 Calcium 9.4 Serum , Qual 03/22/22 02:05 WBC RBC Hgb Hct MCV MCH MCHC RDW Std Deviation RDW Coeff of Marlene Plt Count MPV Immature Gran % (Auto) Neut % (Auto) Lymph % (Auto) [place] % (Auto) Eos % (Auto) Baso % (Auto) Absolute Neuts (auto) Absolute Lymphs (auto) Nucleated RBC % Sodium Potassium Chloride Carbon Dioxide Anion Gap BUN Creatinine Estim Creat Clear Calc Est GFR (MDRD) Af Amer Est GFR (MDRD) Non-Af BUN/Creatinine Ratio Glucose Lactic Acid Calcium Serum , Qual NEGATIVE Radiography Diagnostic Testing: Clinical Impression(s) from Imaging Studies Abdomen/Pelvis CT 03/22/22 01:52 IMPRESSION: 3 mm stone in the right kidney without hydronephrosis. Descending colon diverticulitis with free air in the abdomen is consistent with perforated diverticulum. Electronically Signed: Jessica Xie MD at 2:55 EDT , ADDENDUM: 03/22/22 0305 IMPRESSION: 3 mm stone in the right kidney without hydronephrosis. Descending colon diverticulitis with free air in the abdomen is consistent with perforated diverticulum. N.B. : The above Results were Read Back by Jessica Xie MD to Dr. Sommer MD, and understanding confirmed on 03/22/2022 02:58:15 (ET). Electronically Signed: Jessica Xie MD at 2:55 EDT , Discharge Plan Triage Chief Complaint: Abd Pain ED Provider: Karolina Novoa Dx/Rx/DC Orders Clinical Impression: Diverticulosis, Perforated abdominal viscus Prescriptions: No Action acidophilus-pectin, citrus 1 TABLET tablet 1 tab PO BID Qty: 14 RF: 0 bupropion HCl [Wellbutrin XL] 300 mg Tablet Extended Release 24 Hr 300 mg PO DAILY RF: 0 Primary Care Provider: Bahman Huerta Referrals: Bahman Huerta MD [Primary Care Provider] - Disposition Disposition: Transfer to Another Type HCF
--- NOTE | 2022-03-22 01:52 | CT_ITS ---
We are attempting to reach an attending provider to discuss findings. An addendum with communication details will be sent when the communication is complete. STUDY: CT ABDOMEN AND PELVIS WITHOUT CONTRAST REASON FOR EXAM: Female, 46 years old. LLQ abd pain RADIATION DOSAGE (If Supplied By Facility): CTDIvol = ( 18.34 ) mGy, DLP = ( 980.51 ) mGycm TECHNIQUE: Transaxial images were obtained from the dome of the diaphragm to the symphysis pubis without oral contrast, and without intravenous contrast. Sagittal and coronal images were reconstructed. Individualized dose optimization techniques were used for this CT. COMPARISON: None. FINDINGS: The visualized lung bases are unremarkable. The visualized portions of the heart are within normal limits. Normal liver. Normal gallbladder and extrahepatic biliary system. Normal spleen. Normal pancreas. Normal bilateral adrenal glands. 3 mm stone in the right kidney without hydronephrosis. Normal left kidney. Normal visualized stomach. Normal small intestine. There is diverticulosis, with thickening of the descending colon wall, and pericolonic inflammation changes consistent with acute diverticulitis. There is free air in the abdomen is consistent with perforated diverticulum. The appendix is visualized and appears normal. Normal abdominal aorta. Normal inferior vena cava. Normal retroperitoneum. Normal urinary bladder. Normal abdominal wall. Normal osseous structures. CT/Abdomen/Pelvis without Cont IMPRESSION: 3 mm stone in the right kidney without hydronephrosis. Descending colon diverticulitis with free air in the abdomen is consistent with perforated diverticulum. Electronically Signed: Jessica Xie MD at 2:55 EDT ,
[2022-03-22] MEDS: Ondansetron 4 MG/2 ML Vial IV (02:08)
[2022-03-22] MEDS: 0.9% Normal Saline 1,000 ML 125 ML IV (02:08)
[2022-03-22] MEDS: HYDROmorphone 1 MG/ML Syringe IV ×3 (02:08→06:45)
[2022-03-22 02:23] LABS: Absolute Lymphocyte Count 2.07 X10^3/uL (0.83-4.51); Basophil# 0.06 X10^3/uL; Basophil% 0.4 % (0-1); Eosinophil# 0.15 X10^3/uL; Eosinophils% 1.1 % (0-5); Hematocrit 40.5 % (37-47); Lymphocyte # 2.07 X10^3/ul (0.83-4.51); Lymphocyte % 14.8 % (19-41); Mean Corp Hgb Conc 34.6 g/dL (32-36); Mean Corpuscular Hgb 28.9 pg (27.0-32.0); Mean Corpuscular Volume 83.5 fL (81-99); Monocyte# 0.66 X10^3/uL; Monocyte% 4.7 % (0-10); NRBC Flagged by Analyzer 0 % (0-5); Neutrophil # 10.95 X10^3/uL (2.7-7.7); Neutrophil % 78.6 % (47-70); Platelet Count 371 K/mm3 (150-450); RBC Distribution Width CV 13.1 % (11.6-14.6); RBC Distribution Width SD 39.6 fl (35.1-43.9); Red Blood Count 4.85 M/mm3 (4.2-5.4); White Blood Count 13.9 K/mm3 (4.4-11.0)
[2022-03-22 02:34] LABS: Internal QC Validated? YES +Cl - CLEAR BKGD; Pregnancy, Serum, hCG Quali. NEGATIVE Negative
[2022-03-22 02:38] LABS: Anion Gap 7 (5-15); BUN 15 mg/dL (7-18); Calcium,Total 9.4 mg/dL (8.5-10.1); Chloride 109 mmol/L (98-107); Creatinine, Serum 0.75 mg/dL (0.55-1.02); EST Glomerular Filtration Rate 88 mL/min (>60); Est Glom Filt Rate - Afr Amer 107 mL/min (>60); Estimated Creatinine Clearance 87.74 ml/min; Glucose 128 mg/dL (74-106); Potassium 3.9 mmol/L (3.5-5.1); Sodium Level 139 mmol/L (136-145)
[2022-03-22 02:43] LABS: Lactic Acid 1.8 mmol/L (0.4-1.9)
[2022-03-22 02:54] LABS: Mucous, Urine 0 SEEN /hpf (<or=2+); Red Blood Cells-Urine 0 SEEN /hpf (0-5)
[2022-03-22 02:59] LABS: Color, Urine Yellow (Yellow); Glucose, Dipstick Normal (Normal); Ketone-Dipstick 5 mg/dl (Negative); Leukocyte Esterase-Dipstick 25 /ul (Negative); Nitrite-Dipstick Negative (Negative); Occult Blood-Urine Negative /ul (Negative); Protein-Dipstick 30 mg/dl (Negative); Urine Bilirubin Dipstick Negative (Negative); Urine Clarity Clear (Clear); Urine Urobilinogen 1 mg/dl (Normal)
[2022-03-22] MEDS: levoFLOXacin IV 750 MG/150 ML BAG 100 MG IV (03:11)
[2022-03-22 03:21] LABS: Bacteria 1+ /hpf (None Seen); Squamous Epithelial Cells - UA 0-5 SEEN /hpf (5-10); White Blood Cells 0-5 SEEN /hpf (0-5)
[2022-03-22] MEDS: metroNIDAZOLE 500 MG/100 ML BAG 100 MG IV (03:24)
[2022-03-22 03:45] VITALS: RESP 16
[2022-03-22 04:19] VITALS: BP 129/70; PULSE 76; RESP 18; TEMP 36.7; O2SAT 97
== END 2022-03-22 07:16 | disposition other institution (70) ==
PROVIDERS: Emergency Provider Emergency Medicine; PCP Family Medicine; Visit Provider Emergency Medicine
DX: K57.20 Diverticulitis of large intestine with perforation and abscess without bleeding (principal); Z87.442 Personal history of urinary calculi; Z87.19 Personal history of other diseases of the digestive system; Z87.891 Personal history of nicotine dependence
CPT/HCPCS: 74176; 80048; 81001; 83605; 84703; 85025; 96361; 96365; 96368; 96375; 96376; 99285; J7030; A4216; J2405

== ENCOUNTER 2025-04-12 10:08 | Observation (INO) | payer OTHER, SELFPAY ==
[2025-04-12] VITALS (11 sets, daily range): BP systolic 112–177; BP diastolic 63–99; PULSE 72–102; RESP 9–16; TEMP 36.6–36.8; O2SAT 94–99; BMI 38.0
--- NOTE | 2025-04-12 10:36 | EKG12_ITS ---
Test Reason : STROKE TEAM Blood Pressure : */* mmHG Vent. Rate : 86 BPM Atrial Rate : 86 BPM P-R Int : 178 ms QRS Dur : 82 ms QT Int : 382 ms P-R-T Axes : 31 23 32 degrees QTcB Int : 457 ms Normal sinus rhythm Low voltage QRS Borderline ECG Confirmed by TOMAS MENDEZ, SUDHAKAR ([id number]), photography editor JING LEA ([id number]) on 04/13/2025 10:49:34 AM Referred By: Kiko Herrmann Confirmed By: SUDHAKAR MARIN MD
--- NOTE | 2025-04-12 10:36 | CT_ITS ---
PROCEDURE: STROKE BRAIN/HEAD WITHOUT CONT 04/12/2025 REASON FOR EXAM: NEURO DEFICIT, ACUTE, STROKE SUSPECTED TECHNIQUE: STROKE BRAIN/HEAD WITHOUT CONT Coronal and Sagittal reconstruction series were provided. One or more dose reduction techniques were used (e.g., Automated exposure control, adjustment of the mA and/or kV according to patient size, use of iterative reconstruction technique. RADIATION DOSE SUMMARY: CTDlvol: 44.99 mGy DLP: 745.49 mGycm COMPARISON: None FINDINGS: Brain: Within normal limits for age CSF Spaces: Normal Sinuses/Mastoids: Partial opacification of the ethmoid sinuses. Bones: Unremarkable CT/STROKE Brain/Head without Cont IMPRESSION: NO ACUTE FINDINGS Partial opacification of the ethmoid sinuses. Red Alert: No acute abnormality The critical information above was relayed directly by me by telephone to John Gonzalez on 04/12/2025 at 10:54 am with readback verification. Reading Location: [place] [id number]
--- NOTE | 2025-04-12 10:37 | CT_ITS ---
PROCEDURE: STROKE CTA HEAD AND NECK W/CON 04/12/2025 REASON FOR EXAM: NEURO DEFICIT, ACUTE, STROKE SUSPECTED TECHNIQUE: STROKE CTA HEAD AND NECK W/CON Multiplanar Sagittal and Coronal images were obtained. CONTRAST: 100 cc Isovue 370 One or more dose reduction techniques were used (e.g., Automated exposure control, adjustment of the mA and/or kV according to patient size, use of iterative reconstruction technique). RADIATION DOSE SUMMARY: DLP: 801.1 mGycm COMPARISON: None FINDINGS: Aortic Arch: Patent Brachiocephalic and Subclavians: Unremarkable RIGHT Carotid: Right CCA: Patent Right ICA: Patent Maximum stenosis (NASCET): 0 % Right ECA: Patent LEFT Carotid: Left CCA: Patent Left ICA: Minimal plaque is noted Maximum stenosis (NASCET): 0 % Left ECA: Patent Vertebrals: Patent RIGHT Vertebral: Patent LEFT Vertebral: Patent Anatomy: Unremarkable Aneurysm or avm: None Anterior cerebral arteries: Patent Middle cerebral arteries: Patent Basilar artery: Patent Posterior cerebral arteries: Patent Other major branches of the posterior circulation: Unremarkable Major venous structures: Patent Other findings: Neck: Unremarkable lungs: Clear bones: There is no acute bony abnormality. CT/STROKE CTA Head AND Neck W/Con IMPRESSION: There is no significant stenosis in the carotid system or intracranial circulat ion, with no visible aneurysm or occlusion identified. Reading Location: [place]
--- NOTE | 2025-04-12 10:50 | EX.ED.DYSGE1 ---
HPI History of Present Illness Chief Complaint: Headache Narrative Narrative: Chief complaint and HPI: Headache and paresthesias. 49-year-old female with past medical history of migraines and TIA presents for evaluation of headache and paresthesias. Patient states she does not follow with a neurologist as she does not get frequent migraines. She states she is not on any maintenance medication. Patient states while driving in the car she developed a visual aura in which she saw waves. She states she then developed a headache that has gradually worsened with paresthesias worse on the left. She endorses difficulty concentrating but not confusion as in triage note. Endorses an episode of blurry vision not vision loss which is stated in the triage note. Last known normal was 8:30 AM. She states she took 600 mg of ibuprofen without any improvement. Associated symptoms is photophobia. She denies any aphasia or dysarthria. States that she has developed a new tremor during this. Denies any head injury. Review of systems: See HPI Medications: As listed on the chart Allergies: As listed on the chart PFSH: Per chart Vital signs: As listed on the chart. Reviewed. Physical exam: Gen: A&O x3, anxious, tearful, sitting in a dark room Head: Normocephalic, atraumatic Eyes: No sclera icterus, conjunctiva clear, PERRL, EOMI ENT: Moist mucous membranes, No facial asymmetry Neck: Trachea midline, No JVD CV: RRR, no murmurs, no peripheral edema Resp: Lungs CTA BL, no w/r/c GI: Abd soft, non-distended, non-tender, no r/r/g Musc: Full ROM, no deformity, strength +5/5 in all extremities, no pronator drift, no ataxia, slow to follow commands Skin: Warm, dry, intact Neuro: Alert, oriented, no aphasia, no dysarthria, endorses decreased sensation to dull touch to the left forearm compared to the right, NIH 1 secondary to the sensation Psych: Anxious, tearful [facility] Medical History (Updated 04/12/25 @ 17:22 by Deanna Jiménez) Anxiety Depression Former smoker Migraines Seizures TIA (transient ischemic attack) Kidney stone Diverticulitis Home Medications ?Medication ?Instructions ?Recorded ?Last Taken ?Type acidophilus 25 million 1 tab PO BID #14 tabs 08/22/19 Unknown Rx cell-pectin, citrus 100 mg tablet prochlorperazine maleate 10 mg 10 mg PO Q6H PRN nausea and 04/12/25 Unknown Rx tablet (Compazine) vomiting #15 tabs sumatriptan succinate 100 mg 100 mg PO Q2H PRN migraine 04/12/25 Unknown Rx tablet (Imitrex) headache #9 tabs Allergy/AdvReac Type Severity Reaction Status Date / Time amoxicillin Allergy Anaphylaxis Verified 04/12/25 10:13 aspirin Allergy Rash Verified 04/12/25 10:13 ciprofloxacin (From Cipro) Allergy MUSCLE PAIN Verified 04/12/25 10:13 chlorhexidine (From AdvReac Rash Verified 04/12/25 10:13 ChloraPrep Clear) isopropyl alcohol (From AdvReac Rash Verified 04/12/25 10:13 ChloraPrep Clear) Social History Smoking Status: Former smoker EXAM Physical Exam Const Vital Signs: 04/12/25 10:10 04/12/25 11:24 04/12/25 11:25 Temperature 97.9 F Temperature Source Oral Pulse Rate 93 86 Respiratory Rate 16 15 Blood Pressure 112/91 H 150/69 H Blood Pressure Mean 98 96 Pulse Ox 98 99 99 Oxygen Delivery Method Room Air Room Air 04/12/25 11:30 04/12/25 12:00 04/12/25 13:00 Temperature Temperature Source Pulse Rate 79 73 72 Respiratory Rate 12 15 15 Blood Pressure 154/68 H 149/82 H 177/99 H Blood Pressure Mean 96 104 123 Pulse Ox 99 97 98 Oxygen Delivery Method Room Air 04/12/25 15:00 04/12/25 15:26 Temperature Temperature Source Pulse Rate 79 82 Respiratory Rate 9 L 12 Blood Pressure 135/71 H 135/75 H Blood Pressure Mean 89 95 Pulse Ox 97 98 Oxygen Delivery Method Room Air MDM MDM MDM Narrative Medical decision making narrative: 49-year-old female with past medical history of migraines and TIA presents for evaluation of headache and paresthesias. Patient states she does not follow with a neurologist as she does not get frequent migraines. States her last known normal was 8:30 AM prior to developing a visual aura, headache, and paresthesias. Took 600 mg ibuprofen prior to arrival. Physical exam findings show decreased sensation to dullness of the left forearm. Differential diagnosis includes but is not limited to complex migraine, TIA, CVA, electrolyte abnormality, dehydration. Although I suspect patient's symptoms are likely secondary to a complex migraine given her decreased sensation to dullness of the left forearm with history of TIA, patient was made a stroke alert. NIH is 1. Patient taken immediately to CT. CVA workup ordered including migraine cocktail with NS bolus, Benadryl, Reglan, morphine ordered. Toradol not given as I cannot rule out a hemorrhagic CVA as well as patient just took 600 [address]fen. Glucose 118. CT head negative for intracranial abnormality other than partial opacification of the ethmoid sinuses. I did personally speak with the radiologist. [facility] neurology evaluated the patient. Agree that patient is not a TNK candidate given low NIH. Recommended MRI brain. Agrees with migraine cocktail. CBC unremarkable without leukocytosis or anemia. Coagulation panel unremarkable. BMP unremarkable. Magnesium level unremarkable. Troponin unremarkable. CTA head and neck with no significant stenosis. No aneurysm or occlusion. On reevaluation, patient still endorsing headache without improvement. Dilaudid ordered. Imitrex not given due to concern for CVA/TIA. Patient will warrant admission for MRI brain and further pain management. I spoke with the hospitalist service, Dr. Herrmann. Recommended 1 g valproic acid and 2 g magnesium be given for migraine headache. Recommended MRI brain be performed in the emergency department without admission. These were ordered. MRI of the brain without any acute intracranial abnormality. On reevaluation, patient still endorsing a migraine headache with little improvement. She is yet to receive the valproic acid and the magnesium is almost completed. Patient is still sitting in a dark room. She states she cannot discharge home with this headache. Given patient's headache is still not improved as well as the duration spent in the emergency department and the duration it will take to complete valproic acid, I feel that patient would benefit from admission for observation and continued treatment of her migraine. I spoke with the hospitalist and patient was discussed. Patient will be admitted to the hospital for observation. EKG: Interpreted by me/EM physician: EKG shows normal sinus rhythm without acute ischemic changes heart rate 86. Diagnostic: Interpreted by me/EM physician: Chest x-ray without pneumonia, effusion, cardiomegaly, pneumothorax Impression: 1. Intractable migraine headache 2. Complex migraine Lab Data Labs: Laboratory Results - last 24 hr 04/12/25 04/12/25 10:36 11:20 WBC 7.5 RBC 4.38 Hgb 12.8 Hct 37.0 MCV 84.5 MCH 29.2 MCHC 34.6 RDW Std Deviation 37.4 RDW Coeff of Marlene 12.3 Plt Count 318 MPV 9.8 Immature Gran % (Auto) 0.300 Neut % (Auto) 62.7 Lymph % (Auto) 27.3 [place] % (Auto) 6.5 Eos % (Auto) 2.3 Baso % (Auto) 0.9 Absolute Neuts (auto) 4.7 Absolute Lymphs (auto) 2.05 Nucleated RBC % 0 PT 13.2 INR 1.0 APTT 25.2 Sodium 134 Potassium 3.9 Chloride 100 Carbon Dioxide 23.2 Anion Gap 11 BUN 15 Creatinine 0.62 L Estim Creat Clear Calc 135.81 Est GFR (MDRD) Non-Af 109 BUN/Creatinine Ratio 23.8 H Glucose 109 H Calcium 9.0 Magnesium 1.8 Troponin T High Sens < 6 POC Glucose 118 H Radiography Diagnostic Testing: Clinical Impression(s) from Imaging Studies Brain CT 04/12/25 10:36 IMPRESSION: NO ACUTE FINDINGS Partial opacification of the ethmoid sinuses. Red Alert: No acute abnormality The critical information above was relayed directly by me by telephone to John Ferrer on 04/12/2025 at 10:54 am with readback verification. Reading Location: [facility] Head/Neck CTA 04/12/25 10:37 IMPRESSION: There is no significant stenosis in the carotid system or intracranial circulation, with no visible aneurysm or occlusion identified. Reading [facility] Chest X-Ray 04/12/25 11:50 IMPRESSION: No acute process detected. Reading Location[facility] Brain MRI 04/12/25 12:35 IMPRESSION: No acute intra calvarial process. Other findings as above. Reading Location[facility] Discharge Plan Disposition Disposition: Acute Care Hospital [facility] Discharge Date/Time: 04/12/25 16:59
[2025-04-12 10:55] LABS: Bedside Glucose 118 mg/dL (74-106)
[2025-04-12] MEDS: Morphine 4 MG/ML Syringe IV (11:21)
[2025-04-12] MEDS: 0.9% Normal Saline (1000mL) 1,000 ML 999 ML IV ×2 (11:21→17:40)
[2025-04-12] MEDS: Metoclopramide 10 MG/2 ML Vial 5 MG IV (11:21)
[2025-04-12] MEDS: DiphenhydrAMINE 50 MG/ML Syringe 25 MG IV (11:21)
--- NOTE | 2025-04-12 11:22 | ED.RN ---
Delay in CTA due to difficulty in IV access. Pt had to be Ultrasounded for IV access. Plain CT brain was completed in a timely manner.
--- NOTE | 2025-04-12 11:29 | ED.RN ---
1036 and 1117 took multiple rings before [facility] answered call.
[2025-04-12 11:31] LABS: Absolute Lymphocyte Count 2.05 X10^3/uL (0.83-4.51); Absolute Neutrophil Count 4.7 X10^3/uL (2.0-7.7); Basophil# 0.07 X10^3/uL; Basophil% 0.9 % (0-1); Eosinophil# 0.17 X10^3/uL; Eosinophils% 2.3 % (0-5); Hemoglobin 12.8 g/dL (12.0-15.0); Lymphocyte # 2.05 X10^3/ul (0.83-4.51); Lymphocyte % 27.3 % (19-41); Mean Corp Hgb Conc 34.6 g/dL (32-36); Mean Corpuscular Hgb 29.2 pg (27.0-32.0); Mean Corpuscular Volume 84.5 fL (81-99); Mean Platelet Vol. 9.8 fl (6.2-12.0); Monocyte# 0.49 X10^3/uL; Monocyte% 6.5 % (0-10); NRBC Flagged by Analyzer 0 % (0-5); Neutrophil # 4.71 X10^3/uL (2.7-7.7); Neutrophil % 62.7 % (47-70); Platelet Count 318 K/mm3 (150-450); RBC Distribution Width CV 12.3 % (11.6-14.6); RBC Distribution Width SD 37.4 fl (35.1-43.9); Red Blood Count 4.38 M/mm3 (4.2-5.4); White Blood Count 7.5 K/mm3 (4.4-11.0)
--- NOTE | 2025-04-12 11:33 | ED.RN ---
1131 [facility] neurologist beamed in.
[2025-04-12 11:42] LABS: Prothrombin Time (Protime)PT. 13.2 SECONDS (11.7-14.9)
--- NOTE | 2025-04-12 11:42 | ED.RN ---
pt told neurologist that her lt arm now has more sensation.
[2025-04-12 11:43] LABS: Partial Thromboplast Time 25.2 Seconds (24.1-36.2)
--- NOTE | 2025-04-12 11:50 | RAD_ITS ---
PROCEDURE: CHEST 1 VIEW 04/12/2025 REASON FOR EXAM: NEURO DEFICIT, ACUTE, STROKE SUSPECTED TECHNIQUE: Frontal view of the chest. COMPARISON: None. FINDINGS: Hardware: None. Heart: Normal size. Lungs: Clear. Bones: No aggressive process. Other: RAD/Chest 1 View IMPRESSION: No acute process detected. Reading Location[facility]
[2025-04-12 12:06] LABS: Anion Gap 11 (5-15); BUN 15 mg/dL (4-19); BUN/Creat Ratio 23.8 RATIO (10-20); Carbon Dioxide 23.2 mmol/L (21.0-32.0); Chloride 100 mmol/L (98-108); Creatinine, Serum 0.62 mg/dL (0.70-1.20); EST Glomerular Filtration Rate 109 (>60); Estimated Creatinine Clearance 135.81 ml/min (50-250); Glucose 109 mg/dL (70-99); Magnesium 1.8 mg/dL (1.5-2.2); Potassium 3.9 mmol/L (3.3-5.1); Sodium Level 134 mmol/L (133-145)
[2025-04-12 12:19] LABS: Troponin T High Sensitivity < 6 ng/L (<=14)
[2025-04-12] MEDS: HYDROmorphone 0.5 MG/0.5 ML SYRINGE IV (12:21)
--- NOTE | 2025-04-12 12:35 | MRI_ITS ---
PROCEDURE: BRAIN WITHOUT CONTRAST 04/12/2025 REASON FOR EXAM: HEADACHE TECHNIQUE: Noncontrast brain MRI. Multiplanar and multisequence images were obtained. COMPARISON: CT brain April 12, 2020 FINDINGS: Brain: No intra-axial or extra-axial hemorrhage. No mass, mass effect or midline shift. Minimal hyperintense T2/FLAIR punctate foci in the deep white matter, likely early changes of chronic small-vessel ischemic disease. Ventricles: Ventricles and sulci are normal size for patient's age. Major Intracranial Vessels: Normal flow voids are seen in the anterior circulation and vertebrobasilar system Sinuses: Scattered mucosal thickening in the ethmoid air cells. Other sinuses are predominantly clear. Mastoids: Clear. MRI/Brain without Contrast IMPRESSION: No acute intra calvarial process. Other findings as above. Reading Location[facility]
[2025-04-12] MEDS: Magnesium Sulfate 2 GM in Dextrose 5%-Water (100mL Bag) 100 ML IV (12:51)
[2025-04-12] MEDS: proCHLORPERazine 10 MG/2 ML Vial IV (16:32)
[2025-04-12] MEDS: Valproate Sodium 1,000 MG in Dextrose 5%-Water (50mL Bag) 50 ML 50 MG IV (16:32)
[2025-04-12] MEDS: SUMAtriptan 6 MG/0.5 ML Vial SC (16:37)
--- NOTE | 2025-04-12 16:37 | CASEMGMT ---
Care Management Face to Face with patient for initial transition planning/care coordination assessment in the ED.? This entry writer introduced self and role at [facility]. Patient alert and oriented. Patient willing to participate in assessment and is able to answer all questions appropriately.? Care providers, pharmacy, and demographics verified. Admitting Diagnosis: Migraine Other diagnosis history: ?kidney stone, diverticulitis PCP: ?Deanna Specialists: GI doctor Preferred Pharmacy: [facility] Insurance: ?[place] Prescription Benefit: ?Yes Living Will/HPOA: ?None LNOK: ? Living Arrangements: ?Patient lives with and son, 1 story home. ?Independent with ADLs and IADLs Transportation: ?Patient drives DME: ?None HHC: ?used once in past for PICC line SNF/Rehab: ?none Community Resources: ?none Behavioral Health History: ?None Patient goals: Patient wishes to discharge home, denies need for home health care at this time. Patient denies any further needs or concerns at this time. Disposition Plan: admission to acute; RN CM/SW to follow for discharge planning needs that may arise. Yvonne Saldana, PUBLICITY MANAGER, PORTABLE MACHINE CUTTER
--- NOTE | 2025-04-12 16:49 | ED.RN ---
This nurse informed by the pt. that she is missing, a cross necklace and xuan stud earnings after going to CT. CT called, response yes, they were placed in a clear bag and returned to the pt. after scan. This nurse checked the pt. room, bed linen, soiled linen, and trash can. I am unable to find the belongings at this time.
--- NOTE | 2025-04-12 16:52 | ED.RN ---
MRI CALLED UNABLE TO FIND JEWELRY AT THIS TIME IN THEIR DEPARTMENT
--- NOTE | 2025-04-12 19:27 | DCINST_ITS ---
Discharge Instructions Diet Discharge Diet: No restrictions DC O2, CPAP, BIPAP needs Home O2 Discharge instructions: No Dressing / Incision Discharge Activity: Return to Normal Activity Weight Bearing Status: Full weight bearing Follow Up Care Test Results: Test results from this visit will be discussed in further detail at your follow- up appointment, if applicable. Discharge Plan Admission Admit Date/Time: 04/12/25 15:45 Primary Reason for Your Visit: Migraine cephalgia Attending Provider: Kiko Herrmann Primary Care Provider: Bahman Huerta Discharge Orders/Prescriptions Prescriptions: New prochlorperazine maleate [Compazine] 10 mg tablet 10 mg PO Q6H PRN (Reason: nausea and vomiting) Qty: 15 0RF Rx Instructions: 1 every 6 hours as needed for nausea, can also be used for migraine headache 1 every 6 hours sumatriptan succinate [Imitrex] 100 mg tablet 100 mg PO Q2H PRN (Reason: migraine headache) Qty: 9 0RF Rx Instructions: do not exceed 2 doses per 24 hrs-May take 1 for migraine, may repeat the dose in 2 hours if not effective x 1 Continued acidophilus-pectin, citrus 1 TABLET tablet 1 tab PO BID Qty: 14 0RF Rx Instructions: OTC Referrals / Follow Up: Bahman Huerta MD [Primary Care Provider] - Within 2 Weeks Disposition Disposition (needs filled in before D/C Order can be placed): Home, Self Care
--- NOTE | 2025-04-12 19:30 | PCM.DC.SUM ---
Providers Date of Admission: 04/12/25 Date of Discharge: 04/12/25 Primary Care Physician: Dr. Bahman Huerta MD Reason For Visit: migraine Diagnosis Discharge Diagnosis (1) Migraines: Status: Acute Code(s): G43.909 - Migraine, unspecified, not intractable, without status migrainosus Plan 1. Complex migraine cephalgia #2 left-sided paresthesia secondary to complex migraine cephalgia Medications at Discharge Home Medications acidophilus 25 million cell-pectin, citrus 100 mg tablet 1 tab PO BID #14 tabs 08/22/19 prochlorperazine maleate 10 mg tablet (Compazine) 10 mg PO Q6H PRN nausea and vomiting #15 tabs 04/12/25 sumatriptan succinate 100 mg tablet (Imitrex) 100 mg PO Q2H PRN migraine headache #9 tabs 04/12/25 Hospital Course Operations None Procedures None Summary of Care Provided Minutes Spent on Discharge: 30 Hospital Course: This 49-year-old white female was seen in the emergency room at [facility] with complaints of left-sided paresthesias along with a headache. Patient has a history of migraine cephalgias and chronic headaches which are not migraine. Workup in the emergency room included a CAT scan which showed no abnormality, and MRI of the brain was able to be obtained and this was also unremarkable. Patient was given several medications in an attempt to alleviate her cephalgia, unfortunately she still had a headache and had to be placed into observation status on MedSurg 3. In the evening of 04/12/2025, I saw the patient on MedSurg 3 and she immediately asked me if she could be discharged home. Patient stated her headache was improved. For her physical examination on that date please see my H&P dated 04/12/2025. Patient was discharged home in stable condition on 04/12/2025 Weight / BMI Weight Weight: 107.048 kg Body Mass Index (BMI) 38.0 ABG / Lab / Microbiology Data 04/12/25 11:20 04/12/25 11:20 Laboratory: Laboratory Results - last 24 hr 04/12/25 10:36: POC Glucose 118 H 04/12/25 11:20: WBC 7.5, RBC 4.38, Hgb 12.8, Hct 37.0, MCV 84.5, MCH 29.2, MCHC 34.6, RDW Std Deviation 37.4, RDW Coeff of Marlene 12.3, Plt Count 318, MPV 9.8, Immature Gran % (Auto) 0.300, Neut % (Auto) 62.7, Lymph % (Auto) 27.3, [place] % (Auto) 6.5, Eos % (Auto) 2.3, Baso % (Auto) 0.9, Absolute Neuts (auto) 4.7, Absolute Lymphs (auto) 2.05, Nucleated RBC % 0, PT 13.2, INR 1.0, APTT 25.2, Sodium 134, Potassium 3.9, Chloride 100, Carbon Dioxide 23.2, Anion Gap 11, BUN 15, Creatinine 0.62 L, Estim Creat Clear Calc 135.81, Est GFR (MDRD) Non-Af 109, BUN/Creatinine Ratio 23.8 H, Glucose 109 H, Calcium 9.0, Magnesium 1.8, Troponin T High Sens < 6 Radiography Diagnostic Testing: Radiology Impression Brain CT 04/12/25 10:36 IMPRESSION: NO ACUTE FINDINGS Partial opacification of the ethmoid sinuses. Red Alert: No acute abnormality The critical information above was relayed directly by me by telephone to John Ferrer on 04/12/2025 at 10:54 am with readback verification. Reading Location: [facility] Head/Neck CTA 04/12/25 10:37 IMPRESSION: There is no significant stenosis in the carotid system or intracranial circulation, with no visible aneurysm or occlusion identified. Reading Location: [facility] Chest X-Ray 04/12/25 11:50 IMPRESSION: No acute process detected. Reading [facility] Brain MRI 04/12/25 12:35 IMPRESSION: No acute intra calvarial process. Other findings as above. Reading Location[facility] D/C Instructions Discharge Diet: No restrictions Weight Bearing Status: Full weight bearing DC O2, CPAP, BIPAP Needs Home O2 Discharge instructions: No Meaningful Use Info Meaningful Use Meaningful Use Diagnoses (Choose all that apply): None applicable Ischemic Stroke Statin Dosing Therapy Reference: STATIN DOSE THERAPY REFERENCE: * Patients > 75 years receive moderate or high dose statin therapy. * Patients 75 years or YOUNGER should receive HIGH intensity statin dose unless contraindicated. You will be required to document reason for non-treatment if statin daily dose does not meet guidelines. HIGH DOSE STATIN THERAPY DAILY Atorvastatin > than or = to 40 mg Rosuvastatin > than or = to 20 mg Amlodipine + Atorvastatin > than or = to 2.5/40 mg Ezetimibe + Simvastatin 10/80 mg Simvastatin 80mg Discharge Plan Admission Admit Date/Time: 04/12/25 15:45 Primary Reason for Your Visit: Migraine cephalgia Attending Provider: Kiko Herrmann Primary Care Provider: Bahman Huerta Discharge Orders/Prescriptions Prescriptions: New prochlorperazine maleate [Compazine] 10 mg tablet 10 mg PO Q6H PRN (Reason: nausea and vomiting) Qty: 15 0RF Rx Instructions: 1 every 6 hours as needed for nausea, can also be used for migraine headache 1 every 6 hours sumatriptan succinate [Imitrex] 100 mg tablet 100 mg PO Q2H PRN (Reason: migraine headache) Qty: 9 0RF Rx Instructions: do not exceed 2 doses per 24 hrs-May take 1 for migraine, may repeat the dose in 2 hours if not effective x 1 Continued acidophilus-pectin, citrus 1 TABLET tablet 1 tab PO BID Qty: 14 0RF Rx Instructions: OTC Referrals / Follow Up: Bahman Huerta MD [Primary Care Provider] - Within 2 Weeks Disposition Disposition (needs filled in before D/C Order can be placed): Home, Self Care Charges/Coding Visit Charges Inpatient E&M: 88337 Disch Hosp
--- NOTE | 2025-04-12 19:31 | PCM.HP.STD ---
HPI - General General Date of Admission: 04/12/25 Date of Service: 04/12/25 Chief Complaint: Headache, left-sided paresthesias HPI Narrative BARRON EDGE, is a 49 F who presents to the ER with an onset of global headache today along with left-sided paresthesias. Patient denied any focal weakness. A stroke team was called when she arrived in the emergency room, she underwent a CT of the brain and a CT of the head and neck both these imaging tests were unremarkable. Patient's NIH stroke score on presentation was 1, she was seen by the teleneurologist who recommended admission and an MRI be obtained. I called down to MRI and was able to get an MRI performed on the patient this afternoon which was unremarkable, she then returned to the emergency room and despite analgesics and antiemetics, and IV magnesium she continues to have a headache. Patient was admitted to [place] [id number], she was placed on IV valproic acid, IV dexamethasone, and IV Compazine. Before she left the emergency room for admission, patient was given a subcu injection of Imitrex 6 mg. Patient has a history of frequent headaches but does not call them migraines, she takes no prescription medication at home except for an anxiety medication which I do not have listed. [facility] Medical History (Updated 04/13/25 @ 19:[address] Kiko Herrmann, DO) Anxiety Depression Former smoker Migraines Seizures TIA (transient ischemic attack) Kidney stone Diverticulitis Home Medications ?Medication ?Instructions ?Recorded ?Last Taken ?Type acidophilus 25 million 1 tab PO BID #14 tabs 08/22/19 Unknown Rx cell-pectin, citrus 100 mg tablet prochlorperazine maleate 10 mg 10 mg PO Q6H PRN nausea and 04/12/25 Unknown Rx tablet (Compazine) vomiting #15 tabs sumatriptan succinate 100 mg 100 mg PO Q2H PRN migraine 04/12/25 Unknown Rx tablet (Imitrex) headache #9 tabs Allergy/AdvReac Type Severity Reaction Status Date / Time amoxicillin Allergy Anaphylaxis Verified 04/12/25 10:13 aspirin Allergy Rash Verified 04/12/25 10:13 ciprofloxacin (From Cipro) Allergy MUSCLE PAIN Verified 04/12/25 10:13 chlorhexidine (From AdvReac Rash Verified 04/12/25 10:13 ChloraPrep Clear) isopropyl alcohol (From AdvReac Rash Verified 04/12/25 10:13 ChloraPrep Clear) Social History Smoking Status: Former smoker ROS Constitutional Constitutional: Denies anorexia, change in weight, chills, fatigue, fever(s), night sweats or weakness Eyes Eyes: Denies blurry vision, change in vision, discharge from eye(s) or eye pain Cardiovascular Cardiovascular: Denies chest pain, claudication, edema or palpitations Respiratory/Chest Respiratory/Chest: Denies cough, hemoptysis, shortness of breath at rest or shortness of breath with exertion Gastrointestinal Gastrointestinal: Denies abdominal pain, constipation, diarrhea, hematemesis, hematochezia, melena, nausea or vomiting Genitourinary Genitourinary: Denies dysuria, hematuria, urinary frequency, urinary hesitancy, urinary incontinence or urinary urgency Musculoskeletal Musculoskeletal: Denies back pain, joint pain, joint stiffness, joint swelling, myalgias or neck pain Neurologic Neurologic: Reports headache(s), numbness and paresthesias LUE and LLE; Denies abnormal gait, abnormal speech, dizziness, focal weakness, loss of vision, other visual disturbances, syncope or tingling Psychiatric Psychiatric: Denies anxiety, cognitive impairment, depression, irritability, mood swings or suicidal ideation Endocrine Endocrinology: Denies change in body appearance, cold intolerance, excessive sweating, heat intolerance, polydipsia or polyuria Hematologic/Lymphatic Hematologic/Lymphatic: Denies none, anemia, easy bleeding, easy bruising or lymphadenopathy Allergic/Immunologic Allergic/Immunologic: Denies rhinitis, urticaria, eczemia or asthma Vital Signs Vital Signs Vital Signs: 04/12/25 10:10 04/12/25 11:24 04/12/25 11:25 Temperature 97.9 F Temperature Source Oral Pulse Rate 93 86 Respiratory Rate 16 15 Blood Pressure 112/91 H 150/69 H Blood Pressure Mean 98 96 Blood Pressure Source Blood Pressure Position Blood Pressure Location Pulse Ox 98 99 99 Oxygen Delivery Method Room Air Room Air 04/12/25 11:30 04/12/25 12:00 04/12/25 13:00 Temperature Temperature Source Pulse Rate 79 73 72 Respiratory Rate 12 15 15 Blood Pressure 154/68 H 149/82 H 177/99 H Blood Pressure Mean 96 104 123 Blood Pressure Source Blood Pressure Position Blood Pressure Location Pulse Ox 99 97 98 Oxygen Delivery Method Room Air 04/12/25 15:00 04/12/25 15:26 04/12/25 16:39 Temperature 98.2 F Temperature Source Pulse Rate 79 82 87 Respiratory Rate 9 L 12 12 Blood Pressure 135/71 H 135/75 H 112/69 Blood Pressure Mean 89 95 83 Blood Pressure Source Blood Pressure Position Blood Pressure Location Pulse Ox 97 98 98 Oxygen Delivery Method Room Air 04/12/25 16:42 04/12/25 17:26 Temperature 98.1 F Temperature Source Oral Pulse Rate 73 Respiratory Rate 16 Blood Pressure 121/63 H Blood Pressure Mean 82 Blood Pressure Source Monitor Blood Pressure Position Semi-Fowlers Blood Pressure Location Left Arm Pulse Ox 94 Oxygen Delivery Method Room Air Room Air Weight Weight: 107.048 kg Body Mass Index (BMI) 38.0 Physical Exam Const alert, oriented x3, no apparent distress and healthy appearing General Appearance: cooperative, well kempt and well developed Orientation / Consciousness: awake, oriented to person, oriented to place and oriented to time HEENT normocephalic, head/scalp atraumatic, hearing grossly normal bilaterally and moist oral mucous membranes Eyes PERRL, EOMs intact bilaterally and conjunctivae normal Neck supple, no JVD, thyroid normal and no carotid bruits General: trachea midline Resp normal respiratory effort, no retractions, no use of accessory muscles and clear to auscultation bilaterally Auscultation: Negative for rales, rhonchi or wheezes Cardio regular rate, regular rhythm, S1 normal heart sound, S2 normal heart sound, no murmurs, no rub and no gallops GI normal to inspection, nondistended, normoactive bowel sounds, soft to palpation, non-tender and non-distended Extremity no clubbing, cyanosis or edema Skin no rashes or lesions noted General Skin Exam: no breakdown Neuro oriented x3, CN's II-XII intact bilaterally, moves all extremities, no focal motor deficits and no sensory deficits noted Sensorium / Orientation: awake and alert Speech: speech normal Psych affect normal Results Lab / Micro Data 04/12/25 11:20 04/12/25 11:20 Labs: Laboratory Results - last 24 hr 04/12/25 10:36: POC Glucose 118 H 04/12/25 11:20: WBC 7.5, RBC 4.38, Hgb 12.8, Hct 37.0, MCV 84.5, MCH 29.2, MCHC 34.6, RDW Std Deviation 37.4, RDW Coeff of Marlene 12.3, Plt Count 318, MPV 9.8, Immature Gran % (Auto) 0.300, Neut % (Auto) 62.7, Lymph % (Auto) 27.3, [place] % (Auto) 6.5, Eos % (Auto) 2.3, Baso % (Auto) 0.9, Absolute Neuts (auto) 4.7, Absolute Lymphs (auto) 2.05, Nucleated RBC % 0, PT 13.2, INR 1.0, APTT 25.2, Sodium 134, Potassium 3.9, Chloride 100, Carbon Dioxide 23.2, Anion Gap 11, BUN 15, Creatinine 0.62 L, Estim Creat Clear Calc 135.81, Est GFR (MDRD) Non-Af 109, BUN/Creatinine Ratio 23.8 H, Glucose 109 H, Calcium 9.0, Magnesium 1.8, Troponin T High Sens < 6 Imaging Radiology Impression Brain CT 04/12/25 10:36 IMPRESSION: NO ACUTE FINDINGS Partial opacification of the ethmoid sinuses. Red Alert: No acute abnormality The critical information above was relayed directly by me by telephone to John Ferrer on 04/12/2025 at 10:54 am with readback verification. Reading Location: [facility] Head/Neck CTA 04/12/25 10:37 IMPRESSION: There is no significant stenosis in the carotid system or intracranial circulation, with no visible aneurysm or occlusion identified. Reading Location: [facility] Chest X-Ray 04/12/25 11:50 IMPRESSION: No acute process detected. Reading Location: [facility] Brain MRI 04/12/25 12:35 IMPRESSION: No acute intra calvarial process. Other findings as above. [facility] Assessment & Plan Assessment/Plan (1) Migraines: PLAN: Plan 1. Complex migraine-patient will be placed in observation status on MedSur 3, I have chosen to give the patient dexamethasone, Toradol, and Compazine IV, she will be reevaluated tomorrow #2 left-sided paresthesias-probably secondary to complex migraines, patient's MRI was negative Total clinical time spent by myself addressing the patient's medical issues, reviewing all of her data, and collaborating with patient's care team: 55 minutes Charges/Coding Visit Charges Inpatient E&M: 91797 Init Hosp L2
--- NOTE | 2025-04-12 20:18 | NURSING ---
pt d/c at this time. pt stable, belongings w/ pt. pts daughter here to pick pt up.
== END 2025-04-12 20:16 | disposition home or self-care (01) ==
LOC: ED 12:14 → MS3 16:18
PROVIDERS: Admitting Provider Internal Medicine; Emergency Provider Surgery; PCP Family Medicine; Referring Provider Internal Medicine; Visit Provider Internal Medicine
DX: G43.109 Migraine with aura, not intractable, without status migrainosus (principal); Z87.891 Personal history of nicotine dependence; R20.2 Paresthesia of skin; Z79.899 Other long term (current) drug therapy
CPT/HCPCS: 70450; 70496; 70498; 70551; 71045; 80048; 82962; 83735; 84484; 85025; 85610; 85730; 93005; 96361; 96365; 96366; 96367; 96372; 96375; 99285; Q9967; A4216; J3030